=== PATIENT | male | born 1930 | race Caucasian/White ===

== ENCOUNTER 2017-07-03 09:38 | Observation (INO) | payer MEDICARE ==
[2017-07-03 10:16] LABS: Hematocrit 38 % (42-52); Hemoglobin 12.4 g/dl (14.0-18.0); Mean Corpuscular HGB Conc 33 g/dl (31-36); Mean Corpuscular Hemoglobin 32 pg (27-31); Mean Corpuscular Volume 98 fL (80-94); Mean Platelet Volume 8 um3 (7.4-10.4); Red Blood Count 3.85 10^6/ul (4.0-5.4); Red Cell Distribution Width 15 % (10.5-15); White Blood Count 5.9 10^3/ul (3.5-10.8)
[2017-07-03 10:32] LABS: Ammonia 33 mol/L (16-53)
[2017-07-03 10:33] LABS: Troponin I 0.02 ng/mL (<0.04)
[2017-07-03 10:37] LABS: B Type Natriuretic Peptide 202 pg/mL
[2017-07-03 10:38] LABS: Albumin 3.8 g/dL (3.2-5.2); BUN/Creatinine Ratio 23.1 (8-20); Calcium 9.1 mg/dL (8.6-10.3); EGFR African American 86.5 (>60); EGFR Non-African American 67.2 (>60); Globulin 2.6 g/dL (2-4); Potassium 4.4 mmol/L (3.5-5.0); Total Bilirubin 0.4 mg/dL (0.2-1.0); Total Protein 6.4 g/dL (6.4-8.9)
--- NOTE | 2017-07-03 10:53 | RAD ---
HISTORY: Syncope COMPARISONS: July 29, 2016 VIEWS: 4: Frontal dual-energy and lateral views of the chest. FINDINGS: CARDIOMEDIASTINAL SILHOUETTE: The cardiomediastinal silhouette is normal. TORI: The tori are normal. PLEURA: There is elevation of the right hemidiaphragm, stable. LUNG PARENCHYMA: The lungs are clear. ABDOMEN: The upper abdomen is clear. There is intraluminal gas within the colon in the right upper quadrant.. BONES AND SOFT TISSUES: The patient is status post median sternotomy. OTHER: A left-sided pacemaker is noted. IMPRESSION: ELEVATION OF THE RIGHT HEMIDIAPHRAGM, STABLE.
--- NOTE | 2017-07-03 11:00 | RAD ---
INDICATION: Syncope. COMPARISON: Comparison is made with a prior CT of the brain from October 06, 2015. TECHNIQUE: Contiguous axial sections of the brain were obtained from the skull base to the vertex without contrast. FINDINGS: The ventricles, cisterns and sulci are enlarged consistent with diffuse atrophy. There are multiple focal areas of decreased density in the subcortical and periventricular white matter suggestive of moderate chronic small vessel ischemic changes. There is no evidence for hemorrhage. No significant focal osseous abnormality is seen. The visualized portion of the paranasal sinuses and mastoid air cells appear clear. IMPRESSION: 1. NO EVIDENCE FOR ACUTE INTRACRANIAL ABNORMALITY. 2. ATROPHY AND FINDINGS CONSISTENT WITH MODERATE CHRONIC SMALL VESSEL ISCHEMIC CHANGES.
[2017-07-03 11:03] LABS: TSH (Thyroid Stimulating Horm) 0.87 mcIU/mL (0.34-5.60)
[2017-07-03] MEDS ORDERED: Acetaminophen TAB* 325 MG PO PRN (11:29)
[2017-07-03] MEDS ORDERED: NS 0.9% 1000 ML* 1,000 ML IV SCH (11:30)
[2017-07-03] MEDS ORDERED: Nitroglycerin TAB 0.4 MG* 0.4 MG TAB SL PRN (11:33)
[2017-07-03] MEDS ORDERED: traMADol TAB* 50 MG PO PRN (11:33)
[2017-07-03] MEDS ORDERED: Dextrose 50% Syringe 50 ML* 25 GM/50 ML SYRINGE IV PUSH PRN (12:36)
[2017-07-03 14:03] LABS: Urine Bacteria Absent (Absent); Urine Bilirubin Negative (Negative); Urine Glucose 3+(>=500 mg/dL) (Negative); Urine Nitrite Negative (Negative)
[2017-07-03] MEDS: Heparin VIAL(*) 5000 UNITS/ML VIAL (FIVE THOUSAND) SUBCUT SCH ×2 (15:08→21:24)
[2017-07-03] MEDS: Insulin LISPRO* 1 UNITS UNIT SUBCUT SCH ×2 (17:07→21:23)
--- NOTE | 2017-07-03 21:12 | HP ---
ADDENDUM NOW INCLUDED ON THIS REPORT CC: Dr. Tamez; Dr. Villegas.* HISTORY AND PHYSICAL: DATE OF ADMISSION: 07/03/17 PRIMARY CARE PROVIDER: Dr. Tamez. DISH STACKER: Dr. Villegas. CHIEF COMPLAINT: Syncope. HISTORY OF PRESENT ILLNESS: Hang Paula is an 87-year-old male with a history of coronary artery disease, diabetes, hypertension, who has also history of sick sinus syndrome for which he had a pacemaker placed in March 2016. The patient stated that today he went out to have breakfast. He went to [employer] and he had a bagel, but did not drink yet and after having the bagel, he felt like he is going to faint. He felt lightheaded and had blurry vision for a moment before he passed out. He was found by his family sitting by the table with his head in his hands. The loss of consciousness lasted seconds to couple of minutes. When he regained consciousness, he did not have any residual confusion. He did not have chest pain or shortness of breath before or after the episode. The patient stated that he had a similar episode just before his pacemaker was inserted. The patient is also orthostatic, blood pressures were positive for hypertension when he stood up with a systolic pressure going from 140 when he is lying down to 108 when he is sitting up. The patient's stated that the patient sometime gets "stubborn." He does not want to get out of bed. Yesterday was one of those days when he decided that he is going to just lay in bed. He stayed in bed all day and he had only one meal. He basically did not drink anything all day yesterday and today in the morning, he just had a bagel, but he did not have his cup of coffee yet before passing out. He is going to be admitted to observation with diagnosis of syncope, most likely due to orthostasis, although his pacemaker is going to be also checked. PAST MEDICAL HISTORY: 1. Hypertension. 2. Diabetes. 3. Hyperlipidemia. 4. History of coronary artery disease, status post stenting and coronary artery bypass grafting. 5. Osteoarthritis. 6. BPH. 7. History of esophageal stricture, status post dilatation. 8. History of polymyalgia rheumatica. 9. History of CVA. 10. History of migraine headaches. 11. Gastroesophageal reflux disease. 12. Vascular dementia. 13. Status post cataract surgery bilaterally. PAST SURGICAL HISTORY: 1. Tonsillectomy. 2. History of aortic valve replacement. 3. History of lumbar laminectomy and the cervical laminectomy. MEDICATIONS: At discharge: 1. Nitroglycerine patch 0.4 mg per hour daily. 2. Metoprolol succinate 12.5 mg daily. 3. Hydrochloroquine 400 mg daily. 4. Glipizide 5 mg in the morning and 10 mg at night. 5. Celexa 20 mg daily. 6. Tramadol 50 mg on a p.r.n. basis. 7. Protonix 40 mg daily. 8. [place]-3 fatty acids at 1200 mg b.i.d. 9. Plavix 75 mg daily. 10. Aspirin 81 mg daily. 11. Nitroglycerine sublingual only on p.r.n. basis. 12. Finasteride 5 mg daily. 13. Lipitor 10 mg daily. 14. Allopurinol 600 mg daily. 15. Diltiazem CD 120 mg, the patient takes 2 tablets daily. 16. Magnesium oxide 400 mg daily. 17. Lisinopril 5 mg daily. ALLERGIES: Include LANSOPRAZOLE, PREDNISONE, ZETIA, PRAVACHOL, SIMVASTATIN. FAMILY HISTORY: Positive for brother who of lung cancer. Another brother of multiple sclerosis. Father with complications of diabetes. 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 He lives with his who is his surrogate. He never drank alcohol or smoked tobacco. He denies any drug use. REVIEW OF SYSTEMS: Please see history of present illness. The patient stated that occasionally he gets depressed because his "memory goes." That he gets forgetful and sometimes feels like he does not "want to live anymore." Having said that the patient denies suicidal ideation or planning to kill himself. He said that he felt like he wanted to lie in bed all day yesterday and that is what he did. He laid in bed and he had only one meal. He did not drink any liquids over the past 24 hours and today in the morning when he had his bagel, he was about to have his first cup of coffee in over 24 hours when he passed out. From the other review of systems, his significant complaint is that he is aware of his dementia and problems with memory. He denies any chest pain or shortness of breath. The patient also has problems with left great toe nail, for which he is seeing lollypop machine operator at a couple of days. All the remaining 12 systems reviewed with the patient and were otherwise negative. PHYSICAL EXAMINATION GENERAL: The patient is a very pleasant 87-year-old male who is in no acute distress. The patient is alert, awake and oriented x3, occasionally forgetful. VITAL SIGNS: Blood pressure of 151/69, heart rate of 56 and regular, respiratory rate of 14, oxygen saturation 95% on room air, temperature 98.0. HEENT: Head: Atraumatic, normocephalic. Eyes: Pupils are equal, reactive to light and accommodation. Oropharynx clear. Mucosa moist. NECK: Supple. No JVD. No bruits bilaterally. RESPIRATORY: Clear to auscultation bilaterally. CARDIOVASCULAR: Regular rate and rhythm. No murmur. ABDOMEN: Soft and nontender. Bowel sounds present in all 4 quadrants. EXTREMITIES: There is no edema. Pulses are +2 bilaterally. No clubbing, cyanosis. NEUROLOGIC: Speech is clear. Cranial nerves II through XII grossly intact. Motor strength is 5/5 bilaterally. The patient wears a splint on his left ankle , which is fused after an ankle surgery many years ago. PSYCHIATRIC: The patient is pleasant and cheerful, cooperative with evaluation with no evidence of anxiety or depression. DIAGNOSTIC STUDIES/LABORATORY DATA: Shows white blood cell count 5.9, hemoglobin 12.4, hematocrit 38, and platelets 160. Sodium 135, potassium 4.4, chloride 102, carbon dioxide 28, BUN 24, creatinine 1.04. Liver function tests were unremarkable. Glucose level 281. TSH of 0.87, troponin of 0.02. Portable chest x-ray, impression: "Elevation of the right hemidiaphragm, chronic." CT of the brain, impression: "No evidence of acute intracranial abnormality. Atrophy and findings consistent with moderate chronic small vessel ischemic changes." EKG showed atrially sensed ventricular paced wide ventricular complexes with a 168 beats per minute. ASSESSMENT AND PLAN: 1. An 87-year-old male with a history of heart disease, who presents after a syncopal episode. The patient is orthostatic on evaluation and he ate a meal without drinking anything when he had a syncopal episode. At this point, I think it is a combination of this that he is orthostatic, but he most likely vagal due to dehydration. At this point, the patient is going to be placed on observation with telemetry monitored bed with followup troponins. I will also institute gentle intravenous hydration because he appears to be mildly dehydrated. I will also interrogate his pacemaker. Please note that the patient really wants minimum of necessary things done today since he feels that he is at the end of his life and he does not want to spend in the hospital. In fact, he had to be convinced to stay in the hospital overnight. 2. In regards to the patient's history of diabetes. The patient is going to be placed no insulin sliding scale with insulin lispro for coverage. 3. In regards to the patient's history of coronary artery disease, Plavix is going to be continued. 4. For hypertension, his outpatient medications are going to be continued, but lisinopril is going to be held due to his orthostasis. 5. For his depression. Celexa is going to be continued. 6. For history of polymyalgia rheumatica. Plaquenil is going to be continued. 7. For DVT prophylaxis. The patient is going to be placed on heparin subcutaneously. 8. Code status was discussed with the patient and the patient's and he requested to be do not resuscitate and MOLST was signed. TIME SPENT: Approximately 70 minutes was spent on evaluation of this patient, more than half that time was spent [id number] with the patient doing the interview and physical exam. ADDENDUM: Please note that on evaluation of the patient's bilateral lower extremities, his left great toe nail is basically detached with a small area of chronic inflammation underneath noted. The patient is planning to have a podiatry evaluation in 3 days scheduled. [id number]/[facility] #: [id number] [id number]/CPS #: [id number] ARASH
--- NOTE | 2017-07-04 00:23 | HP ---
HISTORY AND PHYSICAL: ADDENDUM: Please note that on evaluation of the patient's bilateral lower extremities, his left great toe nail is basically detached with a small area of chronic inflammation underneath noted. The patient is planning to have a podiatry evaluation in 3 days scheduled. [id number]/[facility] #: [id number] MTDD
[2017-07-04] MEDS: Heparin VIAL(*) 5000 UNITS/ML VIAL (FIVE THOUSAND) SUBCUT SCH (05:42)
[2017-07-04 05:56] LABS: Mean Platelet Volume 8 um3 (7.4-10.4); Red Cell Distribution Width 15 % (10.5-15)
[2017-07-04 05:58] LABS: Hematocrit 35 % (42-52); Hemoglobin 11.8 g/dl (14.0-18.0); Mean Corpuscular HGB Conc 33 g/dl (31-36); Mean Corpuscular Hemoglobin 33 pg (27-31); Mean Corpuscular Volume 97 fL (80-94); Red Blood Count 3.62 10^6/ul (4.0-5.4); White Blood Count 4.4 10^3/ul (3.5-10.8)
[2017-07-04 05:59] LABS: Comments Flag Yes
[2017-07-04] MEDS ORDERED: CMC:Pantoprazole TAB (NF) 40 MG TAB PO SCH (06:00)
[2017-07-04 06:11] LABS: BUN/Creatinine Ratio 23.9 (8-20); EGFR African American 104.9 (>60); EGFR Non-African American 81.5 (>60); Potassium 4.1 mmol/L (3.5-5.0)
[2017-07-04] MEDS ORDERED: Citalopram TAB* 20 MG PO SCH (09:00)
[2017-07-04] MEDS ORDERED: Nitroglycerin 0.4 MG/HR PATCH* (10 MG) TRANSDERM SCH (09:00)
[2017-07-04] MEDS ORDERED: Diltiazem CD CAP* 240 MG PO SCH (09:00)
[2017-07-04] MEDS ORDERED: Hydroxychloroquine TAB* 200 MG PO SCH (09:00)
[2017-07-04] MEDS ORDERED: Magnesium Oxide TAB* 400 MG PO SCH (09:00)
[2017-07-04] MEDS ORDERED: Aspirin EC Low Dose* 81 MG TAB.EC PO SCH (09:00)
[2017-07-04] MEDS ORDERED: Metoprolol Succinate XL TAB* 25 MG PO SCH (09:00)
[2017-07-04] MEDS ORDERED: Clopidogrel TAB* 75 MG PO SCH (09:00)
[2017-07-04] MEDS ORDERED: Allopurinol TAB* 300 MG PO SCH (09:00)
[2017-07-04] MEDS ORDERED: Atorvastatin* 10 MG TAB PO SCH (09:00)
[2017-07-04] MEDS ORDERED: Finasteride TAB* 5 MG PO SCH (09:00)
[2017-07-04 09:15] VITALS: BP 145/60
[2017-07-04] MEDS: Insulin LISPRO* 1 UNITS UNIT SUBCUT SCH (09:17)
--- NOTE | 2017-07-05 09:09 | DS ---
CC: Dr. Tamez; Dr. Villegas * DISCHARGE SUMMARY: DATE OF ADMISSION: 07/03/17 DATE OF DISCHARGE: 07/04/17 PRIMARY CARE PHYSICIAN: Dr. Tamez. TELECASTING ENGINEER: Dr. Villegas. ATTENDING PHYSICIAN: Dr. Luís Traore * (dictation provided by Kerry Corado NP ). PRIMARY DIAGNOSES: 1. Syncope. 2. Orthostatic hypotension. SECONDARY DIAGNOSES: 1. Hypertension. 2. Type 2 diabetes. 3. Hyperlipidemia. 4. History of coronary artery disease, status post stenting and coronary artery bypass grafting. 5. Osteoarthritis. 6. Benign prostatic hypertrophy. 7. History of esophageal stricture, status post dilatation. 8. History of polymyalgia rheumatica. 9. History of cerebrovascular accident. 10. History of migraine attacks. 11. Gastroesophageal reflux disease. 12. Vascular dementia. 13. Status post cataract surgery bilaterally. 14. Sick sinus syndrome. PAST SURGICAL HISTORY: 1. Tonsillectomy. 2. History of aortic valve replacement. 3. History of lumbar laminectomy and cervical laminectomy. 4. History of pacemaker placement. MEDICATIONS AT THE TIME OF DISCHARGE: 1. Nitroglycerin patch 0.3 mg per hour daily (lower dose). 2. Metoprolol succinate 12.5 mg daily. 3. Hydrochloroquine 400 mg p.o. daily. 4. Glipizide 5 mg in the morning and 10 mg at night. 5. Celexa 20 mg p.o. daily. 6. Tramadol 50 mg p.r.n. 7. Protonix 40 mg daily. 8. [place]-3 fatty acid 1200 mg b.i.d. 9. Plavix 75 mg daily. 10. Aspirin 81 mg p.o. daily. 11. Nitroglycerin sublingually p.r.n. 12. Finasteride 5 mg p.o. daily. 13. Lipitor 10 mg p.o. daily. 14. Allopurinol 600 mg p.o. daily. 15. Diltiazem CD 240 mg p.o. daily. 16. Magnesium oxide 400 mg p.o. daily. 17. Lisinopril 5 mg p.o. daily. HOSPITAL COURSE: Mr. Paula is an 87-year-old male who presented to the hospital on 07/03/17 after having a syncopal episode. Please see the dictated H and P from Rosa Johnson for complete details. In brief, the patient was at [facility] when he fainted. His family noted him sitting on the table with his head in his hands and he was unresponsive for a few seconds to a minute. He recovered well without any symptoms. The patient reported that he has had poor oral intake over the past 24 to 48 hours especially in terms of fluids. In the emergency room, he was noted to be hypotensive with orthostatic hypotension. Mr. Paula was placed on observation in the hospital. He was hydrated and his orthostatic hypotension has resolved. He also had a pacemaker interrogation, which showed no evidence of arrhythmia during the time of this syncopal episode. It is suspected that likely the patient's blood pressure was low perhaps related to his dehydration and multiple antihypertensive medications. In speaking with the patient, he notes that Mr. Villegas recently increased his nitroglycerin patch from 0.3 mg per hour daily to 0.4 mg per hour daily. My recommendation today is to go back down to a lower 0.3 mg per hour dose and to follow up closely with Dr. Villegas regarding adjustment of medications. I have also spoken at length with the patient and his regarding making sure to keep him hydrated during the day. DISPOSITION: To home. DIET: Low salt. ACTIVITY: As tolerated. FOLLOWUP PLANS: 1. Please follow up with Dr. Tamez per routine in the next 1 to 2 weeks regarding this hospitalization. 2. Please follow up with Dr. Villegas in the next available appointment regarding adjustment of blood pressure medications as needed. TIME SPENT: Approximately 60 minutes was spent on the discharge of this patient , more than half the time was spent with the patient at the bedside reviewing the events leading up to this hospitalization, performing the physical examination, and reviewing my plan of care. KERRY CORADO NP [id number]/[facility] #: [id number] ARASH
== END 2017-07-04 12:35 | disposition home or self-care (01) ==
LOC: ED 09:38 → MEDTELE 11:20
PROVIDERS: ADMIT Internal Medicine; ATTEND Internal Medicine
DX: R55 Syncope and collapse (principal); I95.1 Orthostatic hypotension; I10 Essential (primary) hypertension; E11.9 Type 2 diabetes mellitus without complications; E78.5 Hyperlipidemia, unspecified; I25.10 Atherosclerotic heart disease of native coronary artery without angina pectoris; Z95.1 Presence of aortocoronary bypass graft; N40.0 Benign prostatic hyperplasia without lower urinary tract symptoms; M35.3 Polymyalgia rheumatica; Z86.73 Personal history of transient ischemic attack (TIA), and cerebral infarction without residual deficits; K21.9 Gastro-esophageal reflux disease without esophagitis; F01.50 Vascular dementia, unspecified severity, without behavioral disturbance, psychotic disturbance, mood disturbance, and anxiety; R94.31 Abnormal electrocardiogram [ECG] [EKG]; Z79.899 Other long term (current) drug therapy; Z79.84 Long term (current) use of oral hypoglycemic drugs; Z79.01 Long term (current) use of anticoagulants; Z88.8 Allergy status to other drugs, medicaments and biological substances; M19.90 Unspecified osteoarthritis, unspecified site; F32.9 Major depressive disorder, single episode, unspecified
CPT/HCPCS: 36415; 70450; 71020; 80048; 80053; 81003; 81015; 82140; 82550; 83605; 83735; 83880; 84443; 84484; 85025; 85610; 85730; 93005; 96360; 96361; 96372; 99284; A9270-GY; G0378; J1644